=== PATIENT | male | born 1950 | race Caucasian/White ===

== ENCOUNTER 2021-02-20 09:21 | Inpatient (IN) ==
[2021-02-20] MEDS ORDERED: TYLENOL PO ONE (09:54)
[2021-02-20 10:05] LABS: BORDETELLA PARAPERTUSSIS (PCR) NOT DETECTED (NOT DETECT); BORDETELLA PERTUSSIS (PCR) NOT DETECTED (NOT DETECT); CHLAMYDIA PNEUMONIAE (PCR) NOT DETECTED (NOT DETECT); CORONAVIRUS 229E (PCR) NOT DETECTED (NOT DETECT); CORONAVIRUS HKU1 (PCR) NOT DETECTED (NOT DETECT); CORONAVIRUS NL63 (PCR) NOT DETECTED (NOT DETECT); CORONAVIRUS OC43 (PCR) NOT DETECTED (NOT DETECT); HUMAN METAPNEUMOVIRUS (PCR) NOT DETECTED (NOT DETECT); HUMAN RHINOVIRUS/ENTEROV (PCR) NOT DETECTED (NOT DETECT); INFLUENZA B (PCR) NOT DETECTED (NOT DETECT); MYCOPLASMA PNEUMONIAE (PCR) NOT DETECTED (NOT DETECT); PARAINFLUENZA VIRUS 1 (PCR) NOT DETECTED (NOT DETECT); PARAINFLUENZA VIRUS 2 (PCR) NOT DETECTED (NOT DETECT); PARAINFLUENZA VIRUS 3 (PCR) NOT DETECTED (NOT DETECT); PARAINFLUENZA VIRUS 4 (PCR) NOT DETECTED (NOT DETECT); RESPIRATORY SYNCYTIAL V (PCR) NOT DETECTED (NOT DETECT)
[2021-02-20 10:07] LABS: BASOPHILS % (AUTO) 0.2 % (0.0-3.0); EOSINOPHILS # (AUTO) 0.1 K/ul (0.0-0.7); EOSINOPHILS % (AUTO) 0.8 % (0.0-7.0); HEMATOCRIT 40.8 % (42.0-52.0); HEMOGLOBIN 13.9 g/dl (14.0-18.0); IMMATURE GRANULOCYTE % (AUTO) 0.5 % (0.0-5.0); LYMPHOCYTES # (AUTO) 0.9 K/uL (0.60-3.4); LYMPHOCYTES % (AUTO) 10.6 (10.0-50.0); MEAN CORPUSCULAR HGB CONC 34.1 (31.8-35.4); MEAN CORPUSCULAR VOLUME 93.8 fl (80.0-94.0); MONOCYTES # (AUTO) 0.7 K/uL (0.4-2.0); MONOCYTES % (AUTO) 8.1 (0-10); NEUTROPHILS % (AUTO) 79.8 % (42.2-75.2); PLATELET COUNT 201 10^3/uL (140-440); RDW COEFFICIENT OF VARIATION 12.1 % (11.6-14.8); RED BLOOD COUNT 4.35 10^6/ul (4.70-6.10); WHITE BLOOD COUNT 8.76 K/ul (4.2-10.2)
[2021-02-20 10:19] LABS: ALANINE AMINOTRANSFERASE 24.5 U/L (0-50); ALBUMIN 3.84 g/dL (3.5-5.0); BILIRUBIN,TOTAL 0.55 mg/dL (0.2-1.3); BLOOD UREA NITROGEN 25.5 mg/dL (9-20); CALCIUM 8.68 mg/dL (8.4-10.2); CARBON DIOXIDE 26.5 mmol/L (22-30.0); CHLORIDE 103.5 mmol/L (98-107); CREATININE 1.21 mg/dL (0.60-1.10); GLUCOSE 226.8 mg/dL (74-106); POTASSIUM 4.23 mmol/L (3.5-5.1); TOTAL PROTEIN 6.64 g/dL (6.3-8.2)
[2021-02-20 10:31] LABS: TROPONIN I 0.013 ng/ml (0.0000-0.120)
--- NOTE | 2021-02-20 10:35 | DI ---
Exam: Single view chest x-ray. Date: 02/20/2021. Comparison: None. HISTORY: Cough and fever. FINDINGS: Anchors are observed in the left humeral head. There are old healed left-sided rib fractu res. The lungs are clear. The cardiac silhouette and pulmonary vasculature are normal. ASVD is pre sent. Impression: No acute intrathoracic findings. ASVD.
[2021-02-20 10:53] LABS: ADENOVIRUS (PCR) NOT DETECTED (NOT DETECT)
[2021-02-20 10:54] LABS: SARS_COV_2 (PCR) DETECTED (NOT DETECT)
[2021-02-20] MEDS: ROCEPHIN 1 GM/50 ML D5W 1 GM/50 ML BAG IV ONE (11:19)
--- NOTE | 2021-02-20 11:33 | ED.PDOC ---
General ED Provider: Dr. MCKENNA MCDOWELL Chief Complaint: Respiratory Complaint Stated Complaint: Cough, sinus drainage, fever. COVID vaccinated with Moderna September 2020. Time Seen by Provider: 02/20/21 09:30 Mode of Arrival: Walk-In Information Source: Patient Exam Limitations: No limitations Primary Care Provider: JOSEFINA ESCOBAR Nursing and Triage Documentation Reviewed and Agree: Yes Does patient meet sepsis criteria?: No System Inflammatory Response Syndrome: Not Applicable Sepsis Protocol: For patient's 13 years and over: Temp is 96.8 and below OR 101 and greater Pulse >90 BPM Resp >20/minute Acutely Altered Mental Status Are patient's symptoms suggestive of a new infection, such as: -Pneumonia -Skin, Soft Tissue -Endocarditis -UTI -Bone, Joint Infection -Implantable Device -Acute Abdominal Infection -Wound Infection -Meningitis -Blood Stream Catheter Infection -Unknown Respiratory Complaint Exam Respiratory Complaint/Exam Onset/Duration: one week Symptoms Are: Still present Timing: Constant Initial Severity: Moderate Current Severity: Moderate Location: Nose and Chest Character: Reports Productive cough Aggravating: Reports URI Alleviating: Reports None Associated Signs and Symptoms: Reports Dyspnea, Fever, Chills, Wheezing, URI, Nasal congestion, Sinus discomfort and Decreased oral intake; Denies Rapid breathing, Chest pain, Pleuritic chest pain, Hemoptysis, Dizziness, Calf pain, Calf swelling, Edema, Hoarseness, Vomiting, Sore throat, Weight loss, Increased thirst, Increased appetite or Increased urination History of Healthcare-Acquired Pneumonia: No Related Surgical History: Reports None Pulmonary Embolism Risk Factors: None Cardiac Risk Factors: Reports Prior ID, CAD, Diabetes and Hypertension Pseudomonas Risk Factors: Reports None Tuberculosis Risk Factors: Reports None Status Asthmaticus Risk Factors: Reports None Home Oxygen Use: No Recent Stress Test: No Recent Echo/LV Function: No Current Antibiotic Use: No Current Asthma Medication Use: No Respiratory Distress: Moderate Inadequate Respiratory Effort: Yes Dysphagia Present: No Stridor Present: No JVD Present: No Accessory Muscle Use: No Retractions: Not Present Diminished Breath Sounds: Yes Sinus Tenderness: Maxillary Grunting Respirations: No Kussmaul Respirations: No Differential Diagnoses: Pneumonia, SARS, Sinusitis, URI and Lower Resp. Infection Review of Systems Review Of Systems Constitutional: Reports Chills and Fever Eyes: Reports No symptoms Ears, Nose, Mouth, Throat: Reports Nose discharge Respiratory: Reports Cough Cardiac: Reports No symptoms GI: Reports No symptoms : Reports No symptoms Musculoskeletal: Reports No symptoms Skin: Reports No symptoms Neurological: Reports No symptoms Endocrine: Reports No symptoms Hematologic/Lymphatic: Reports No symptoms All Other Systems: Reviewed and Negative [facility] Medical History (Updated 02/20/21 @ 12:26 by ELISA PALACIO RN) Diabetes Elevated cholesterol with elevated triglycerides Heart attack Hypertension Family History (Updated 02/20/21 @ 12:26 by ELISA PALACIO RN) Mother Diabetes SISTER Diabetes Social History (Updated 02/20/21 @ 12:26 by ELISA PALACIO RN) Smoking and tobacco status: Never smoker Passive smoking exposure: No Second hand smoke exposure: No Surgical History (Updated 02/20/21 @ 12:26 by ELISA PALACIO RN) Hx of appendectomy Hx of cholecystectomy Hx of tonsillectomy Physical Exam Physical Exam Appearance: Reports Ill-appearing Ill-appearing: Moderate Pain Distress: None Eyes: Reports TRUE ENT: Reports Oropharynx normal, Rhinorrhea and Other (sinus TTP) Neck: Supple Respiratory: Reports Airway patent, Breath sounds diminished and Rhonchi Cardiovascular: Reports RRR and Pulses normal GI/: Reports Soft and Nontender Musculoskeletal: Reports Normal strength, ROM intact and No edema Skin: Reports Warm, Dry and Normal color Neurological: Reports Sensation intact and Motor intact Psychiatric: Reports Affect appropriate and Mood appropriate Interpretation Radiology Interpretation Radiology Interpretation By: Radiologist Radiology Results: No acute changes Exam Interpreted: Portable CXR EKG Interpretation Time of EKG #1: 11:45 Rate: Normal Rhythm: Sinus Ectopy: None [place]: Left (LAD) ST Segment: Normal Interpretation: WNL Re-Evaluation Re-Evaluation Time of Re-Evaluation: 11:30 Status: Unchanged Vital Signs Stable: Yes Critical Care Note Critical Care Note Total Critical Care Time (mins): 0 Course Course Hematology/Chemistry: 02/20/21 09:58 02/20/21 09:58 Orders, Labs, Meds: Lab Review 02/20/21 02/20/21 02/20/21 09:47 09:58 09:58 WBC 8.76 RBC 4.35 L Hgb 13.9 L Hct 40.8 L MCV 93.8 MCH 32.0 H MCHC 34.1 RDW Coeff of Larry 12.1 Plt Count 201 Immature Gran % (Auto) 0.5 Neut % (Auto) 79.8 H Lymph % (Auto) 10.6 [place] % (Auto) 8.1 Eos % (Auto) 0.8 Baso % (Auto) 0.2 Neut # (Auto) 7.0 H Lymph # (Auto) 0.9 [place] # (Auto) 0.7 Eos # (Auto) 0.1 Baso # (Auto) 0.0 Immature Gran # (Auto) 0.0 PT INR Sodium 139.0 Potassium 4.23 Chloride 103.5 Carbon Dioxide 26.5 Anion Gap 13.23 BUN 25.5 H Creatinine 1.21 H Estimated GFR (MDRD) 59.00 BUN/Creatinine Ratio 21.07 Glucose 226.8 H Lactic Acid Calcium 8.68 Total Bilirubin 0.55 AST 33.0 ALT 24.5 Alkaline Phosphatase 89.0 Troponin I 0.013 Total Protein 6.64 Albumin 3.84 Globulin 2.80 Albumin/Globulin Ratio 1.37 Procalcitonin D-Dimer Adenovirus (PCR) Not detected B. pertussis DNA (PCR) Not detected B.parapertussis DNA PCR Not detected C. pneumoniae DNA (PCR) Not detected Coronavirus OC43 (PCR) Not detected Coronavirus HKU1 (PCR) Not detected Coronavirus 229E (PCR) Not detected Coronavirus NL63 (PCR) Not detected Human Metapneumovir PCR Not detected Influenza Type A (PCR) Not detected Influenza B (RT-PCR) Not detected M. pneumoniae (PCR) Not detected Parainfluenza 1 (PCR) Not detected Parainfluenza 2 (PCR) Not detected Parainfluenza 3 (PCR) Not detected Parainfluenza 4 (PCR) Not detected RSV (PCR) Not detected Entero/Rhino (PCR) Not detected SARS-CoV-2 (PCR) Detected H 02/20/21 02/20/21 02/20/21 09:58 09:58 09:58 WBC RBC Hgb Hct MCV MCH MCHC RDW Coeff of Larry Plt Count Immature Gran % (Auto) Neut % (Auto) Lymph % (Auto) [place] % (Auto) Eos % (Auto) Baso % (Auto) Neut # (Auto) Lymph # (Auto) [place] # (Auto) Eos # (Auto) Baso # (Auto) Immature Gran # (Auto) PT INR Sodium Potassium Chloride Carbon Dioxide Anion Gap BUN Creatinine Estimated GFR (MDRD) BUN/Creatinine Ratio Glucose Lactic Acid 1.36 Calcium Total Bilirubin AST ALT Alkaline Phosphatase Troponin I Total Protein Albumin Globulin Albumin/Globulin Ratio Procalcitonin < 0.05 D-Dimer 2111.94 H Adenovirus (PCR) B. pertussis DNA (PCR) B.parapertussis DNA PCR C. pneumoniae DNA (PCR) Coronavirus OC43 (PCR) Coronavirus HKU1 (PCR) Coronavirus 229E (PCR) Coronavirus NL63 (PCR) Human Metapneumovir PCR Influenza Type A (PCR) Influenza B (RT-PCR) M. pneumoniae (PCR) Parainfluenza 1 (PCR) Parainfluenza 2 (PCR) Parainfluenza 3 (PCR) Parainfluenza 4 (PCR) RSV (PCR) Entero/Rhino (PCR) SARS-CoV-2 (PCR) 02/20/21 09:58 WBC RBC Hgb Hct MCV MCH MCHC RDW Coeff of Larry Plt Count Immature Gran % (Auto) Neut % (Auto) Lymph % (Auto) [place] % (Auto) Eos % (Auto) Baso % (Auto) Neut # (Auto) Lymph # (Auto) [place] # (Auto) Eos # (Auto) Baso # (Auto) Immature Gran # (Auto) PT 10.3 INR 0.97 Sodium Potassium Chloride Carbon Dioxide Anion Gap BUN Creatinine Estimated GFR (MDRD) BUN/Creatinine Ratio Glucose Lactic Acid Calcium Total Bilirubin AST ALT Alkaline Phosphatase Troponin I Total Protein Albumin Globulin Albumin/Globulin Ratio Procalcitonin D-Dimer Adenovirus (PCR) B. pertussis DNA (PCR) B.parapertussis DNA PCR C. pneumoniae DNA (PCR) Coronavirus OC43 (PCR) Coronavirus HKU1 (PCR) Coronavirus 229E (PCR) Coronavirus NL63 (PCR) Human Metapneumovir PCR Influenza Type A (PCR) Influenza B (RT-PCR) M. pneumoniae (PCR) Parainfluenza 1 (PCR) Parainfluenza 2 (PCR) Parainfluenza 3 (PCR) Parainfluenza 4 (PCR) RSV (PCR) Entero/Rhino (PCR) SARS-CoV-2 (PCR) Orders Category Date Time Status EKG-(ED ONLY) Stat CARDIO 02/20/21 11:33 Completed BLOOD CULTURE Stat LAB 02/20/21 09:58 Received CBC W/ AUTO DIFF Stat LAB 02/20/21 09:58 Completed COMPREHENSIVE METABOLIC PANEL Stat LAB 02/20/21 09:58 Results D-DIMER Stat LAB 02/20/21 09:58 Completed LACTIC ACID Stat LAB 02/20/21 09:58 Received PROCALCITONIN Stat LAB 02/20/21 09:58 Completed RESPIRATORY PANEL 2.1 (PCR) Stat LAB 02/20/21 09:47 Completed TROPONIN I Stat LAB 02/20/21 09:58 Results Acetaminophen [Tylenol] MEDS 02/20/21 09:54 Discontinued 650 mg PO ONCE ONE Ceftriaxone/D5w 1 gm Premix [Rocephin 1 gm/50 ml D5w] MEDS 02/20/21 11:11 Discontinued 1 gm in 50 ml IV ONCE CHEST, 1V AP ONLY Stat RADS 02/20/21 10:09 Completed Medications Generic Name Dose Route Start Last Admin Trade Name Freq PRN Reason Stop Dose Admin Acetaminophen 650 mg 02/20/21 12:04 Acetaminophen 325 Mg Tablet PO Q4H PRN Mild Pain Albuterol Sulfate 2 puff 02/20/21 12:09 Albuterol Sulfate (Ventolin Hfa) 18 Gm 1 Puff With Spacer IH Q6H PRN Wheezing Ascorbic Acid 500 mg 02/21/21 09:00 Ascorbic Acid 500 Mg Tablet PO DAILY [facility] Atorvastatin Calcium 20 mg 02/21/21 09:00 Atorvastatin Calcium 20 Mg Tablet PO DAILY [facility] Cholecalciferol 1,000 unit 02/21/21 09:00 Cholecalciferol (Vitamin D3) 1,000 Unit (25 Mcg) Tablet PO DAILY [facility] Clopidogrel Bisulfate 75 mg 02/21/21 09:00 Clopidogrel Bisulfate 75 Mg Tablet PO DAILY [facility] Dexamethasone Sodium Phosphate 6 mg 02/20/21 12:30 02/20/21 13:16 Dexamethasone Sod Phos 10 Mg/Ml Inj IVP 6 mg DAILY [facility] Administration Enoxaparin Sodium 40 mg 02/20/21 12:30 02/20/21 13:16 Enoxaparin Sodium 40 Mg/0.4 Ml Syr SUBCUT 40 mg DAILY [facility] Administration Gabapentin 300 mg 02/20/21 15:00 Gabapentin 300 Mg Capsule PO TID [facility] Glipizide 10 mg 02/21/21 09:00 Glipizide 5 Mg Tablet PO DAILY [facility] Sodium Chloride 1,000 mls @ 75 mls/hr 02/20/21 12:30 02/20/21 13:16 Sodium Chloride IV 75 mls/hr .[id number] [facility] Administration CEFTRIAXONE/D5W 1 GM PREMIX 1 gm in 50 mls @ 75 mls/hr 02/21/21 09:00 Rocephin 1 Gm/50 Ml D5w IV 02/24/21 08:59 DAILY [facility] REMDESIVIR SOLUTION 100 mg/ 270 mls @ 270 mls/hr 02/21/21 12:00 Sodium Chloride IV 02/24/21 13:59 1200 CANDACE Losartan Potassium 25 mg 02/21/21 09:00 Losartan Potassium 25 Mg Tablet PO DAILY [facility] Metoprolol Succinate 25 mg 02/21/21 09:00 Metoprolol Succinate 25 Mg Tab.Er.24h PO DAILY [facility] Non-Formulary Medication 15 mg 02/21/21 09:00 Magnesium PO DAILY [facility] Non-Formulary Medication 100 mg 02/21/21 09:00 Coenzyme Q10 [Co Q-10] PO DAILY [facility] Zinc Sulfate 220 mg 02/21/21 09:00 Zinc Sulfate 220 Mg Capsule PO DAILY [facility] Discontinued Medications Generic Name Dose Route Start Last Admin Trade Name Freq PRN Reason Stop Dose Admin Acetaminophen 650 mg 02/20/21 09:54 02/20/21 09:59 Acetaminophen 325 Mg Tablet PO 02/20/21 09:55 650 mg ONCE ONE Administration CEFTRIAXONE/D5W 1 GM PREMIX 1 gm in 50 mls @ 75 mls/hr 02/20/21 11:11 02/20/21 11:19 Rocephin 1 Gm/50 Ml D5w IV 02/20/21 11:50 75 mls/hr ONCE ONE Administration REMDESIVIR SOLUTION 200 mg/ 290 mls @ 145 mls/hr 02/20/21 12:04 Sodium Chloride IV 02/20/21 14:03 ONCE ONE Vital Signs: Temp Pulse Resp BP Pulse Ox 02/20/21 11:31 99.3 F 02/20/21 11:13 65 22 131/70 93 L 02/20/21 09:50 75 22 175/89 H 92 L 02/20/21 09:21 100.1 F H 82 18 162/89 H 92 L Discharge Plan Discharge Patient Disposition: ADMITTED INPATIENT Discharge Problem: Acute hypoxemic respiratory failure due to COVID-19 ED Provider: MCKENNA MCDOWELL Condition: Stable Physician Progress Note: []COVID positive, mild hypoxemia, no pneumonia, D-dimer elevated, but likely from COVID, PE not clinically likely, trop neg, he does not want transferred to [place] where his PCP is.
[2021-02-20] MEDS ORDERED: VEKLURY 200 MG in SODIUM CHLORIDE 250 ML IV ONE (12:04)
[2021-02-20] MEDS ORDERED: TYLENOL PO PRN (12:04)
[2021-02-20] MEDS ORDERED: VENTOLIN HFA (PER PUFF-WITH SPACER) IH PRN (12:09)
[2021-02-20 12:22] VITALS: BMI 30.3
[2021-02-20] MEDS: LOVENOX SUBCUT SCH (13:16)
[2021-02-20] MEDS: DECADRON IVP SCH (13:16)
[2021-02-20] MEDS: SODIUM CHLORIDE 1,000 ML IV SCH (13:16)
[2021-02-20 13:27] LABS: PROTHROMBIN TIME 10.3 SEC (9.3-11.0)
[2021-02-20] MEDS: NEURONTIN PO SCH ×2 (14:28→20:24)
[2021-02-20] MEDS ORDERED: SODIUM CHLORIDE 3% 100 ML IV ONE (17:10)
[2021-02-20] MEDS: HUMULIN R SUBCUT PRN (19:00)
[2021-02-21] MEDS: SODIUM CHLORIDE 1,000 ML IV SCH (04:47)
[2021-02-21 06:29] LABS: PROTHROMBIN TIME 10.6 SEC (9.3-11.0)
[2021-02-21 06:31] LABS: ALANINE AMINOTRANSFERASE 19.2 U/L (0-50); ALBUMIN 3.14 g/dL (3.5-5.0); ALKALINE PHOSPHATASE 76.4 U/L (56-119); BILIRUBIN,TOTAL 0.28 mg/dL (0.2-1.3); BLOOD UREA NITROGEN 22.9 mg/dL (9-20); CALCIUM 7.68 mg/dL (8.4-10.2); CARBON DIOXIDE 25.3 mmol/L (22-30.0); CHLORIDE 107.4 mmol/L (98-107); CREATININE 1.01 mg/dL (0.60-1.10); GLUCOSE 210.1 mg/dL (74-106); POTASSIUM 4.24 mmol/L (3.5-5.1); SODIUM 139.8 mmol/L (134.5-145); TOTAL PROTEIN 5.6 g/dL (6.3-8.2)
[2021-02-21] MEDS: HUMULIN R SUBCUT PRN ×2 (06:43→20:56)
[2021-02-21] MEDS: DECADRON IVP SCH (08:20)
[2021-02-21] MEDS: ROCEPHIN 1 GM/50 ML D5W 1 GM/50 ML BAG IV SCH (08:20)
[2021-02-21] MEDS: NEURONTIN PO SCH ×3 (08:21→20:37)
[2021-02-21] MEDS: LIPITOR PO SCH (08:21)
[2021-02-21] MEDS: PLAVIX PO SCH (08:21)
[2021-02-21] MEDS: TOPROL XL PO SCH (08:21)
[2021-02-21] MEDS: COZAAR PO SCH (08:22)
[2021-02-21] MEDS: VITAMIN D PO SCH (08:22)
[2021-02-21] MEDS: ZINC-220 PO SCH (08:22)
[2021-02-21] MEDS: VITAMIN C PO SCH (08:22)
[2021-02-21] MEDS ORDERED: NON-FORMULARY MEDICATION (Magnesium 500 mg Tablet) PO SCH (09:00)
[2021-02-21] MEDS ORDERED: GLUCOTROL PO SCH (09:00)
[2021-02-21] MEDS: LOVENOX SUBCUT SCH (09:54)
[2021-02-21] MEDS: NON-FORMULARY MEDICATION (Coenzyme Q10 [Co Q-10] 100 mg Capsule) PO SCH (10:15)
--- NOTE | 2021-02-21 13:21 | CT ---
EXAM: CTA CHEST HISTORY: Cough and elevated D-dimer TECHNIQUE: CTA chest with intravenous contrast. PE protocol. Multiplanar images were provided with MIP images and 3-D reconstructions. COMPARISON: No comparison CT FINDINGS: No pulmonary arterial filling defect is seen. There is mild to moderate atherosclerotic disease whic h also involves the coronary arteries. Mild cardiomegaly is present. No pericardial effusion. No m ediastinal or hilar lymphadenopathy. Lungs reveal moderate bilateral patchy infiltrates suggesting pneumonia. There is no pleural fluid o r pneumothorax. The bones reveal no acute abnormality. IMPRESSION: 1. Moderate bilateral patchy pneumonia. 2. No pulmonary arterial thromboembolism. 3. Mild cardiomegaly. 4. Atherosclerotic disease All CT scans are performed using dose optimization techniques as appropriate to the performed exam an d include at least one of the following: Automated exposure control, adjustment of the mA and/or kV according t o size, and the use of iterative reconstruction technique.
[2021-02-21] MEDS: VEKLURY 100 MG in SODIUM CHLORIDE 250 ML IV SCH (13:27)
--- NOTE | 2021-02-21 15:19 | PCM.PROG ---
Date Seen by Provider: 02/21/21 Time Seen by Provider: 13:00 Subjective: Patient still has shortness of breath and headache. Objective: Vitals: T=98.2 F, P=59, R=24, MD=474/58, SPO2=95 on 2 L per [place] oxygen. HEENT: WNL, generalized headache, primarily over sinuses. ] Neck: [SUpple, no awais.] Lungs: Rhonchi, occ. exp. wheeze, reduced air movement.[] CVS: [RRR without murmur.] Abdomen: [soft, nl BS] Extremities: [Intact without edema.] Neurological: [Intact] Skin: [Intact.] Lab/Tests/Diagnostic Imaging: CBC - overall normal at admit, CMP - improved renal function with hydration. Due to D-dimer elevation, CT chest done, results revealed no PE, but extensive pneumonia present c/w COVID infection. Blood sugar elevated due to steroid use and underlying T2DM. (1) Pneumonia due to COVID-19 virus: Status: Acute Code(s): U07.1 - COVID-19; J12.82 - Pneumonia due to coronavirus disease 2019 SNOMED Code(s): 759405010620038355 Assessment: Treated with oxygen and IV remdesivir (2) Sinusitis: Status: Acute Code(s): J32.9 - Chronic sinusitis, unspecified SNOMED Code(s): 84761090 Assessment: Treated with rocephin IV. Plan: Patient still needs inpatient care due to hypoxemia. COVID pneumonia treated with oxygen, decadron, nebulizer as needed, remdesivir.
[2021-02-22] MEDS: SODIUM CHLORIDE 1,000 ML IV SCH ×4 (00:06→23:34)
[2021-02-22 05:30] LABS: PROTHROMBIN TIME 10.6 SEC (9.3-11.0)
[2021-02-22 05:33] LABS: ALANINE AMINOTRANSFERASE 27.2 U/L (0-50); ALBUMIN 3.07 g/dL (3.5-5.0); ALKALINE PHOSPHATASE 69.5 U/L (56-119); ASPARTATE AMINO TRANSFERASE 38.1 U/L (17-59); BILIRUBIN,TOTAL 0.3 mg/dL (0.2-1.3); CALCIUM 7.77 mg/dL (8.4-10.2); CARBON DIOXIDE 24.2 mmol/L (22-30.0); CHLORIDE 110.6 mmol/L (98-107); CREATININE 0.92 mg/dL (0.60-1.10); GLUCOSE 160.5 mg/dL (74-106); POTASSIUM 4.11 mmol/L (3.5-5.1); SODIUM 140.5 mmol/L (134.5-145); TOTAL PROTEIN 5.68 g/dL (6.3-8.2)
[2021-02-22] MEDS: ROCEPHIN 1 GM/50 ML D5W 1 GM/50 ML BAG IV SCH (09:24)
[2021-02-22] MEDS: TOPROL XL PO SCH (09:27)
[2021-02-22] MEDS: MAG-OX PO SCH (09:28)
[2021-02-22] MEDS: COZAAR PO SCH (09:39)
[2021-02-22] MEDS: LIPITOR PO SCH (09:40)
[2021-02-22] MEDS: VITAMIN D PO SCH (09:40)
[2021-02-22] MEDS: GLUCOTROL PO SCH (09:40)
[2021-02-22] MEDS: NEURONTIN PO SCH ×3 (09:41→20:41)
[2021-02-22] MEDS: ZINC-220 PO SCH (09:41)
[2021-02-22] MEDS: LOVENOX SUBCUT SCH (09:42)
[2021-02-22] MEDS: VITAMIN C PO SCH (09:42)
[2021-02-22] MEDS: PLAVIX PO SCH (09:42)
[2021-02-22] MEDS: DECADRON IVP SCH (09:44)
[2021-02-22] MEDS: NON-FORMULARY MEDICATION (Coenzyme Q10 [Co Q-10] 100 mg Capsule) PO SCH ×2 (10:13→14:18)
[2021-02-22] MEDS ORDERED: VICKS NAS PRN (11:40)
[2021-02-22] MEDS: VEKLURY 100 MG in SODIUM CHLORIDE 250 ML IV SCH (14:53)
[2021-02-22] MEDS: HUMULIN R SUBCUT PRN ×2 (18:42→21:33)
[2021-02-22] MEDS: ROBITUSSIN SUGAR-FREE PO PRN (20:41)
[2021-02-23] MEDS: ROBITUSSIN SUGAR-FREE PO PRN ×3 (01:34→20:19)
[2021-02-23 05:17] LABS: BASOPHILS % (AUTO) 0.1 % (0.0-3.0); HEMATOCRIT 35.1 % (42.0-52.0); IMMATURE GRANULOCYTE # (AUTO) 0.1 (0.0-1.0); IMMATURE GRANULOCYTE % (AUTO) 0.6 % (0.0-5.0); LYMPHOCYTES # (AUTO) 1.3 K/uL (0.60-3.4); LYMPHOCYTES % (AUTO) 12.7 (10.0-50.0); MEAN CORPUSCULAR HEMOGLOBIN 32.1 pg (27.0-31.0); MEAN CORPUSCULAR HGB CONC 34.2 (31.8-35.4); MEAN CORPUSCULAR VOLUME 93.9 fl (80.0-94.0); MONOCYTES # (AUTO) 0.6 K/uL (0.4-2.0); MONOCYTES % (AUTO) 5.8 (0-10); NEUTROPHILS # (AUTO) 8.1 K/ul (2.0-6.9); NEUTROPHILS % (AUTO) 80.8 % (42.2-75.2); PLATELET COUNT 217 10^3/uL (140-440); RDW COEFFICIENT OF VARIATION 11.9 % (11.6-14.8); RED BLOOD COUNT 3.74 10^6/ul (4.70-6.10); WHITE BLOOD COUNT 10.07 K/ul (4.2-10.2)
[2021-02-23 05:25] LABS: PROTHROMBIN TIME 10.8 SEC (9.3-11.0)
[2021-02-23 05:31] LABS: ALANINE AMINOTRANSFERASE 35.9 U/L (0-50); ALBUMIN 3.01 g/dL (3.5-5.0); ASPARTATE AMINO TRANSFERASE 41.8 U/L (17-59); BILIRUBIN,TOTAL 0.26 mg/dL (0.2-1.3); BLOOD UREA NITROGEN 25.5 mg/dL (9-20); CALCIUM 7.85 mg/dL (8.4-10.2); CARBON DIOXIDE 23.1 mmol/L (22-30.0); CHLORIDE 109.8 mmol/L (98-107); CREATININE 0.93 mg/dL (0.60-1.10); GLUCOSE 208.2 mg/dL (74-106); POTASSIUM 4.15 mmol/L (3.5-5.1); TOTAL PROTEIN 5.6 g/dL (6.3-8.2)
[2021-02-23] MEDS: HUMULIN R SUBCUT PRN ×3 (05:40→20:20)
[2021-02-23] MEDS: ROCEPHIN 1 GM/50 ML D5W 1 GM/50 ML BAG IV SCH (08:24)
[2021-02-23] MEDS: PLAVIX PO SCH (08:49)
[2021-02-23] MEDS: GLUCOTROL PO SCH (08:49)
[2021-02-23] MEDS: TOPROL XL PO SCH (08:49)
[2021-02-23] MEDS: MAG-OX PO SCH (08:49)
[2021-02-23] MEDS: COZAAR PO SCH (08:50)
[2021-02-23] MEDS: LIPITOR PO SCH (08:50)
[2021-02-23] MEDS: VITAMIN D PO SCH (08:50)
[2021-02-23] MEDS: VITAMIN C PO SCH (08:50)
[2021-02-23] MEDS: ZINC-220 PO SCH (08:50)
[2021-02-23] MEDS: DECADRON IVP SCH (08:50)
[2021-02-23] MEDS: NEURONTIN PO SCH ×3 (08:50→20:19)
[2021-02-23] MEDS: LOVENOX SUBCUT SCH (08:51)
[2021-02-23] MEDS: NON-FORMULARY MEDICATION (Coenzyme Q10 [Co Q-10] 100 mg Capsule) PO SCH (10:03)
[2021-02-23] MEDS: CLARITIN PO SCH (13:03)
[2021-02-23] MEDS: VEKLURY 100 MG in SODIUM CHLORIDE 250 ML IV SCH (13:03)
--- NOTE | 2021-02-23 13:30 | PCM.PROG ---
Date Seen by Provider: 02/23/21 Time Seen by Provider: 11:00 Subjective: Feels a little better. Less SOA. Eating and drinking OK. Can ambulate. Looking forward to being discharged. Objective: Vitals: T=98.3 F, P=61, R=26, TC=839/73, SPO2=93 HEENT: [WNL with lessening sinus TTP.] Neck: [Supple] Lungs: [Some rhonchi, better, no wheezing.] CVS: [RRR without m.] Abdomen: [soft, nl BS] Extremities: [Intact without edema.] Neurological: Grossly intact. Skin: [WNL] Lab/Tests/Diagnostic Imaging: [Nothing needed clinically, pharmacy may be doing labs re: remdesivir use. ] (1) Pneumonia due to COVID-19 virus: Status: Acute Code(s): U07.1 - COVID-19; J12.82 - Pneumonia due to coronavirus disease 2018 SNOMED Code(s): 539094640807742063 Assessment: Steadily less symptomatic with the COVID pneumonia. Still on oxygen, about 2 li ters, sat mid 90's. Tomorrow is last dose of rem. , and he will have completed his 10 day quarantine. Recommend a 3 step oxygen evaluation tomorrow to see if he can be discharged without oxygen. (2) Sinusitis: Status: Acute Code(s): J32.9 - Chronic sinusitis, unspecified SNOMED Code(s): 51070585 Assessment: Clinically, not a significant issue, tomorrow is last dose of rocephin. I do not think that he needs to be d/c on oral abx whenever he leaves. Plan: Continue same management. Hopefully, can be discharged tomorrow after last dose of rem. at noon.
[2021-02-23] MEDS: SODIUM CHLORIDE 1,000 ML IV SCH (15:05)
[2021-02-24] MEDS: SODIUM CHLORIDE 1,000 ML IV SCH (04:28)
[2021-02-24 05:39] LABS: ALANINE AMINOTRANSFERASE 43.6 U/L (0-50); ALBUMIN 2.89 g/dL (3.5-5.0); ALKALINE PHOSPHATASE 70.3 U/L (56-119); ASPARTATE AMINO TRANSFERASE 34.1 U/L (17-59); BILIRUBIN,TOTAL 0.25 mg/dL (0.2-1.3); BLOOD UREA NITROGEN 21.7 mg/dL (9-20); CALCIUM 7.78 mg/dL (8.4-10.2); CARBON DIOXIDE 24.3 mmol/L (22-30.0); CHLORIDE 110.7 mmol/L (98-107); CREATININE 0.93 mg/dL (0.60-1.10); GLUCOSE 149.6 mg/dL (74-106); POTASSIUM 3.86 mmol/L (3.5-5.1); SODIUM 140.8 mmol/L (134.5-145); TOTAL PROTEIN 5.48 g/dL (6.3-8.2)
[2021-02-24 05:40] LABS: BASOPHILS % (AUTO) 0.2 % (0.0-3.0); EOSINOPHILS % (AUTO) 0.1 % (0.0-7.0); HEMOGLOBIN 12.1 g/dl (14.0-18.0); IMMATURE GRANULOCYTE # (AUTO) 0.1 (0.0-1.0); IMMATURE GRANULOCYTE % (AUTO) 0.8 % (0.0-5.0); LYMPHOCYTES # (AUTO) 1.5 K/uL (0.60-3.4); LYMPHOCYTES % (AUTO) 15.6 (10.0-50.0); MEAN CORPUSCULAR HEMOGLOBIN 31.5 pg (27.0-31.0); MEAN CORPUSCULAR HGB CONC 33.6 (31.8-35.4); MEAN CORPUSCULAR VOLUME 93.8 fl (80.0-94.0); MONOCYTES # (AUTO) 0.6 K/uL (0.4-2.0); MONOCYTES % (AUTO) 6.2 (0-10); NEUTROPHILS # (AUTO) 7.5 K/ul (2.0-6.9); NEUTROPHILS % (AUTO) 77.1 % (42.2-75.2); PLATELET COUNT 225 10^3/uL (140-440); RED BLOOD COUNT 3.84 10^6/ul (4.70-6.10); WHITE BLOOD COUNT 9.72 K/ul (4.2-10.2)
[2021-02-24 05:44] LABS: PROTHROMBIN TIME 11.1 SEC (9.3-11.0)
[2021-02-24] MEDS: HUMULIN R SUBCUT PRN (05:49)
[2021-02-24 05:59] VITALS: TEMP 98.5
[2021-02-24] MEDS: DECADRON IVP SCH (08:40)
[2021-02-24] MEDS: LOVENOX SUBCUT SCH (08:40)
[2021-02-24] MEDS: TOPROL XL PO SCH (08:41)
[2021-02-24] MEDS: GLUCOTROL PO SCH (08:41)
[2021-02-24] MEDS: LIPITOR PO SCH (08:42)
[2021-02-24] MEDS: VITAMIN C PO SCH (08:42)
[2021-02-24] MEDS: VITAMIN D PO SCH (08:42)
[2021-02-24] MEDS: ZINC-220 PO SCH (08:42)
[2021-02-24] MEDS: NEURONTIN PO SCH (08:42)
[2021-02-24] MEDS: COZAAR PO SCH (08:42)
[2021-02-24] MEDS: CLARITIN PO SCH (08:42)
[2021-02-24] MEDS: PLAVIX PO SCH (08:42)
[2021-02-24] MEDS: MAG-OX PO SCH (08:45)
[2021-02-24] MEDS: NON-FORMULARY MEDICATION (Coenzyme Q10 [Co Q-10] 100 mg Capsule) PO SCH (08:47)
--- NOTE | 2021-02-24 09:28 | PCM.DC ---
Final Diagnosis: Acute Pneumonia dur to Covid 19 Virus Acute Hypoxic Respiratory Failure due to COVID 19 Sinusitis Diabetes Type II ASVD (1) Pneumonia due to COVID-19 virus: Status: Acute Code(s): U07.1 - COVID-19; J12.82 - Pneumonia due to coronavirus disease 2018 SNOMED Code(s): 606915468765928220 (2) Sinusitis: Status: Acute Code(s): J32.9 - Chronic sinusitis, unspecified SNOMED Code(s): 48159312 Medications at Discharge: Ambulatory Orders Medication Instructions Recorded atorvastatin 20 mg tablet 20 mg PO DAILY 02/18/20 clopidogrel 75 mg tablet (Plavix) 75 mg PO DAILY 02/18/20 coenzyme Q10 100 mg capsule (Co 100 mg PO DAILY 02/18/20 Q-10) gabapentin 300 mg capsule 300 mg PO TID 02/18/20 (Neurontin) glipizide 10 mg tablet 10 mg PO DAILY 02/18/20 losartan 25 mg tablet 25 mg PO DAILY 02/18/20 magnesium 500 mg tablet 500 mg PO DAILY 02/18/20 metoprolol succinate 25 mg 25 mg PO DAILY 02/18/20 tablet,extended release 24 hr zinc 10 mg tablet 10 mg PO DAILY 02/18/20 aspirin 81 mg chewable tablet 81 mg PO DAILY 04/07/20 nabumetone 750 mg tablet 750 mg PO BID #30 tab 04/07/20
--- NOTE | 2021-02-24 10:09 | PCM.DC ---
Final Diagnosis: (1) Pneumonia due to COVID-19 virus: Status: Acute Code(s): U07.1 - COVID-19; J12.82 - Pneumonia due to coronavirus disease 2019 SNOMED Code(s): 814476486486722575 (2) Sinusitis: Status: Acute Code(s): J32.9 - Chronic sinusitis, unspecified SNOMED Code(s): 24674944 Reason for Hospitalization: 70-year-old male patient presented to the emergency room on February 20, 2021 with a chief complaint of cough sinus drainage fever that had been occ urring for the previous one week. His symptoms were present and were moderately severe. In addition he reported mild Respiratory difficulty, fever, chills, wheezing, upper respiratory infection symptoms of nasal congestion sinus discomfort & reduced oral intake. He denied history of rapid respirations chest pain or hemoptysis He denied swelling of his lower extremities calf pain , nausea vomiting increased thirst weight loss changes in his appetite or urination. He complained of feeling hoarse. Physical examination was conducted at the time of the emergency room admission Revealed the patient to appear ill, in moderate distress bu no specific complaints of pain. HEENT normal (he had a mild degree of rhinorrhea and sinus discomfort Respirations are easy and non-labored with diminished breath sounds of this basis bilaterally. Heart rate was regular rhythmical without murmur. peripheral pulses were normal. Abdomen is soft and non tender. He was appropriately awake active and oriented times three with appropriate affect and mood. Proper diagnostic lab studies routine including an EKG which was normal. Additionally lab studies Included SARS -COV2 studies were obtained and we're p ositive. D dimer elevated He was admitted to the hospital for further diagnostic investigation and definitive therapy including ceftriaxone 1 g daily was administered as well as Remedesivir infusion. Prognosis at Discharge: Stable and improved/ Prognosis good Condition at Discharge: Stable and improved. Medications at Discharge: Ambulatory Orders Medication Instructions Recorded atorvastatin 20 mg tablet 20 mg PO DAILY 02/18/20 clopidogrel 75 mg tablet (Plavix) 75 mg PO DAILY 02/18/20 coenzyme Q10 100 mg capsule (Co 100 mg PO DAILY 02/18/20 Q-10) gabapentin 300 mg capsule 300 mg PO TID 02/18/20 (Neurontin) glipizide 10 mg tablet 10 mg PO DAILY 02/18/20 losartan 25 mg tablet 25 mg PO DAILY 02/18/20 magnesium 500 mg tablet 500 mg PO DAILY 02/18/20 metoprolol succinate 25 mg 25 mg PO DAILY 02/18/20 tablet,extended release 24 hr zinc 10 mg tablet 10 mg PO DAILY 02/18/20 aspirin 81 mg chewable tablet 81 mg PO DAILY 04/07/20 nabumetone 750 mg tablet 750 mg PO BID #30 tab 04/07/20 Lab/Diagnostics: See chart Follow-ups: PCP 1 week Discharge Disposition: Home Hospital Course: This patient is a 70-year-old male patient presented to the emergency room on February 20, 2021 with a chief complaint of cough sinus drainage fever that had been occurring for the previous one week. His symptoms were present and were moderately severe. In addition he reported mild Respiratory difficulty, fever, chills, wheezing, upper respiratory infection symptoms of nasal congestion sinus discomfort & reduced oral intake. He denied history of rapid respirations chest pain or hemoptysis He denied swelling of his lower extremities calf pain , nausea vomiting increased thirst weight loss changes in his appetite or urination. He complained of feeling hoarse. Physical examination was conducted at the time of the emergency room admission Revealed the patient to appear ill, in moderate distress bu no specific complaints of pain. HEENT normal (he had a mild degree of rhinorrhea and sinus discomfort Respirations are easy and non-labored with diminished breath sounds of this basis bilaterally. Heart rate was regular rhythmical without murmur. peripheral pulses were normal. Abdomen is soft and non tender. He was appropriately awake active and oriented times three with appropriate affect and mood. Proper diagnostic lab studies routine including an EKG which was normal. Additio catia lab studies Included SARS -COV2 studies were obtained and we're positive. D dimer elevated.. CT A PE protocol was obtained which revealed Moderate bilateral patchy pneumonia. 2. No pulmonary arterial thromboembolism. 3. Mild cardiomegaly. 4. Atherosclerotic disease He was admitted to the hospital for further diagnostic investigation and definitive therapy including maintenance medication's of Plavix,atorvastatin and all his medication is listed on the chart; ceftriaxone 1 g daily was administered as well as Remedesivir infusion. The patient was reevaluated daily and on February 24, 2001 the patient received his 5th dose of the Remdedivir Clinically improve persisted but has some mild mental fogginess and Fogginess which was thought to be secondary to the Covid infection. In addition his oxygen saturations were running in the low 90 percentile range- O2 sats monitored at 92 to 93%. Arrangements for home .oxygen therapy were made. Patient was quite anxious for discharge. Home medication's are aligned on his discharge orders. He's been advised to remain off work for the next week to follow up with his family physician within a week for final release to work if appropriate. He will be prescribe home oxygen (diagnosis V0 7.1 J 12.82 WithOxygen conservation device at 2 to 3 L per nasal cannula in order to keep O2 sats between 90 to 98%. He was instructed to continue his other maintenance therapy including gabapentin 300 mg TID, glipizide 10 mg QD in the a.m. Plavix 75 mg POQD vitamin D 1000 units daily atorvastatin 20 mg daily why Finison 10 mL POQ4 hours insulin per protocol losartan 25 mg daily magnesium oxide 400 mg daily low presser 25 mg daily zinc sulfate 220 mg daily Prior to discharge home health qualification was obtained by three-step oxygen therapy. Step one, SPO2 result on room air at rest 83% Step two SPO2 result with exercise on room air and step three SPO2 result with exercise on O2 It is noted that the patient automatically qualifies for O2 if his oxygen saturation is low 88%. If O2 saturation is higher than 90% step two is perform and or step to consist of exercise for 5 to 10 minutes on room air. If the p atient's SPO2 drops at 88% at or below during step to step three is required. Instruct step through the patient has to be placed of oxygen showing improvement while on the oxygen. Plan: Discharge to home with orders and treatment plan as outlined.
[2021-02-24] MEDS: VEKLURY 100 MG in SODIUM CHLORIDE 250 ML IV SCH (12:44)
[2021-02-24 12:51] VITALS: BP 136/67
== END 2021-02-24 15:48 | disposition home or self-care (01) | DRG 204 ==
LOC: ED 09:21 → SCU 11:35
PROVIDERS: ADMIT Emergency Medicine; ATTEND Emergency Medicine
DX: R06.2 Wheezing; J06.9 Acute upper respiratory infection, unspecified; R09.81 Nasal congestion; R50.9 Fever, unspecified; R05 Cough; R06.00 Dyspnea, unspecified; J32.9 Chronic sinusitis, unspecified